=== PATIENT | male | born 1970 | race Caucasian/White ===

== ENCOUNTER → 2017-08-06 17:11 | Outpatient (REF) | payer BC, SELFPAY ==
[2017-08-06 19:23] LABS: Amphetamine/Metha Screen,Urine Negative ng/mL (<1000); Barbiturates Screen,Urine Negative ng/mL (<200); Benzodiazepines Screen,Urine Positive ng/mL (200); Cannabinoid Screen,Urine Negative ng/mL (<50); Cocaine Screen,Urine Negative ng/g (<300); Methadone Screen,Urine Negative ng/mL (<300); Opiate Screen,Urine Negative ng/mL (<300); Phencyclidine Screen,Urine Negative ng/mL (<25)
== END ==
LOC: LAB 17:11
PROVIDERS: Visit Provider Nurse Practitioner Family
DX: Z79.899 Other long term (current) drug therapy (principal)
CPT/HCPCS: 80305

== ENCOUNTER → 2017-11-28 15:34 | Outpatient (CLI) | payer BC, SELFPAY ==
[2017-11-28 17:34] LABS: Amphetamine/Metha Screen,Urine Negative ng/mL (<1000); Barbiturates Screen,Urine Negative ng/mL (<200); Benzodiazepines Screen,Urine Positive ng/mL (200); Cannabinoid Screen,Urine Negative ng/mL (<50); Cocaine Screen,Urine Negative ng/g (<300); Methadone Screen,Urine Negative ng/mL (<300); Opiate Screen,Urine Negative ng/mL (<300); Phencyclidine Screen,Urine Negative ng/mL (<25)
== END ==
PROVIDERS: Visit Provider Nurse Practitioner Family
DX: Z79.899 Other long term (current) drug therapy (principal)
CPT/HCPCS: 80305

== ENCOUNTER → 2018-02-20 15:46 | Outpatient (CLI) | payer BC, SELFPAY ==
[2018-02-20 18:26] LABS: Amphetamine/Metha Screen,Urine Negative ng/mL (<1000); Barbiturates Screen,Urine Negative ng/mL (<200); Benzodiazepines Screen,Urine Positive ng/mL (<200); Cannabinoid Screen,Urine Negative ng/mL (<50); Cocaine Screen,Urine Negative ng/mL (<300); Methadone Screen,Urine Negative ng/mL (<300); Opiate Screen,Urine Negative ng/mL (<300); Phencyclidine Screen,Urine Negative ng/mL (<25)
== END ==
PROVIDERS: Visit Provider Nurse Practitioner Family
DX: Z79.899 Other long term (current) drug therapy (principal)
CPT/HCPCS: 80305

== ENCOUNTER → 2018-03-20 16:35 | Outpatient (CLI) | payer BC, SELFPAY ==
[2018-03-20 19:09] LABS: Amphetamine/Metha Screen,Urine Negative ng/mL (<1000); Barbiturates Screen,Urine Negative ng/mL (<200); Benzodiazepines Screen,Urine Positive ng/mL (<200); Cannabinoid Screen,Urine Negative ng/mL (<50); Cocaine Screen,Urine Negative ng/mL (<300); Methadone Screen,Urine Negative ng/mL (<300); Opiate Screen,Urine Negative ng/mL (<300); Phencyclidine Screen,Urine Negative ng/mL (<25)
== END ==
PROVIDERS: Visit Provider Nurse Practitioner Family
DX: Z79.899 Other long term (current) drug therapy (principal)
CPT/HCPCS: 80305

== ENCOUNTER → 2018-12-18 16:51 | Outpatient (CLI) | payer BC, SELFPAY ==
[2018-12-18 19:06] LABS: Amphetamine/Metha Screen,Urine Negative ng/mL (<1000); Barbiturates Screen,Urine Negative ng/mL (<200); Benzodiazepines Screen,Urine Positive ng/mL (<200); Cannabinoid Screen,Urine Negative ng/mL (<50); Cocaine Screen,Urine Negative ng/mL (<300); Methadone Screen,Urine Negative ng/mL (<300); Opiate Screen,Urine Negative ng/mL (<300); Phencyclidine Screen,Urine Negative ng/mL (<25)
== END ==
PROVIDERS: Visit Provider Nurse Practitioner Family
DX: F41.9 Anxiety disorder, unspecified (principal)
CPT/HCPCS: 80305

== ENCOUNTER → 2019-03-26 17:29 | Outpatient (CLI) | payer BC, SELFPAY ==
[2019-03-26 17:48] LABS: Basophils # 0.1 K/mm3 (0-0.2); Basophils % 0.8 % (0.1-2.0); Eosinophils # 0.2 K/mm3 (0.0-0.4); Eosinophils % 2.1 % (0.1-12.0); Hematocrit 48.6 % (42.0-52.0); Hemoglobin 16.7 g/dL (14.1-18.0); Lymphocytes % 26.5 % (10-50); Mean Corpuscular HGB Conc 34.3 g/dL (31.8-35.4); Mean Corpuscular Hemoglobin 34.4 pg (27.0-31.2); Mean Corpuscular Volume 100.4 fl (80-94); Mean Platelet Volume 8.4 fl (7.4-10.4); Monocytes # 0.5 K/mm3 (0.1-1.0); Monocytes % 6.9 % (1.7-9.3); Neutrophils # 4.8 K/mm3 (1.8-7.8); Neutrophils % 63.8 % (37.0-80.0); Platelet Count 206 K/mm3 (142-424); Red Blood Count 4.84 M/mm3 (4.60-6.20); Red Cell Distribution Width 12.5 % (11.5-17.5); White Blood Count 7.5 K/mm3 (4.8-10.8)
[2019-03-26 19:01] LABS: Alanine Aminotransferase 38 U/L (12-78); Alkaline Phosphatase 56 U/L (46-116); Anion Gap 16.6 mEq/L (5-15); Aspartate Amino Transferase 31 U/L (15-37); Bilirubin,Total 0.5 mg/dL (0.2-1.0); Calcium 9.3 mg/dL (8.5-10.1); Carbon Dioxide 26 mmol/L (21.0-32.0); Chloride 101 mmol/L (98-107); Chol/HDL Ratio 6.7 (1-3.5); Cholesterol 220 mg/dL (140-200); Estimated Glomerular Filt Rate 72 ml/min (>60); GFR (African American) 87 ML/MIN (>60); HDL Cholesterol 33 mg/dL (27-67); LDL Cholesterol 131 mg/dL (0-130); Potassium 3.6 mmoL/L (3.5-5.1); Sodium 140 mmol/L (136-145); T4 (Thyroxine) 7.1 ug/dl (4.7-13.3); Thyroid Stimulating Hormone 2.25 uIU/ml (0.358-3.740); Total Protein,Serum 7.9 gm/dL (6.4-8.2); Triglycerides 281 mg/dL (30-200); VLDL Cholesterol 56 mg/dL (0-40)
[2019-03-26 19:10] LABS: Blood Urea Nitrogen 18 mg/dL (7-18); Globulin 3.9 gm/dl (1.3-3.2); Glucose 169 mg/dL (74-106)
== END ==
PROVIDERS: Visit Provider Nurse Practitioner Family
DX: F41.9 Anxiety disorder, unspecified (principal); I10 Essential (primary) hypertension
CPT/HCPCS: 80053; 80061; 84436; 84443; 85025

== ENCOUNTER → 2019-04-30 17:19 | Outpatient (CLI) | payer BC, SELFPAY ==
[2019-04-30 18:23] LABS: Amphetamine/Metha Screen,Urine Negative ng/mL (<1000); Barbiturates Screen,Urine Negative ng/mL (<200); Benzodiazepines Screen,Urine Positive ng/mL (<200); Cannabinoid Screen,Urine Positive ng/mL (<50); Cocaine Screen,Urine Negative ng/mL (<300); Methadone Screen,Urine Negative ng/mL (<300); Opiate Screen,Urine Negative ng/mL (<300); Phencyclidine Screen,Urine Negative ng/mL (<25)
== END ==
PROVIDERS: Visit Provider Nurse Practitioner Family
DX: F41.9 Anxiety disorder, unspecified (principal)
CPT/HCPCS: 80305

== ENCOUNTER 2020-08-08 09:16 | Emergency (ER) | payer BC, SELFPAY ==
[2020-08-08] VITALS (8 sets, daily range): BP systolic 133–168; BP diastolic 71–104; PULSE 81–132; RESP 16–18; TEMP 36.9; O2SAT 93–99; BMI 33.0
--- NOTE | 2020-08-08 11:23 | HMH.EDGENADL ---
ED Disposition Clinical Impression: Essential hypertension, Dizziness Disposition: Home, Self-Care Condition on Discharge: Good Instructions: DI for High Blood Pressure, DI for Dizziness-Nonvertigo Additional Instructions: Stop amlodipine 5 mg and to start amlodipine 10 mg daily. Follow-up with Audrey Ross NP for Dr. Enamorado tomorrow at 11 AM in the office. Prescriptions: Amlodipine Besylate [Amlodipine 10mg Tab] 10 mg PO DAILY #30 tab Transmission Status: Pending to [id number] Referrals: Audrey Ross APRN [Primary Care Provider] - Forms: Work/School Release - Critical Care Critical Care Time: No Attestation: On 08/08/20, the high probability of a clinically significant, sudden or life threatening deterioration of the following system(s) required my full and direct attention, intervention and personal management. The time I documented below is in addition to time spent performing reported procedures but includes the following listed in this critical care notation. Medical Decision Making - Riley Inquiry Pt receiving controlled substance: No Vital Signs: 08/08/20 09:24 08/08/20 09:27 08/08/20 10:29 Temperature 98.4 F Temperature Source Oral Pulse Rate [Right Radial] 132 H 131 H 116 H Respiratory Rate 16 Blood Pressure [Right Arm] 168/101 H 164/98 H 149/87 H Blood Pressure Mean [Right Arm] 123 120 107 Blood Pressure Source [Right Arm] Automatic Cuff Automatic Cuff Automatic Cuff Blood Pressure Position [Right Arm] Supine Supine Sitting 02 Sat by Pulse Oximetry 96 94 L 93 L Oxygen Delivery Method Room Air Room Air Room Air 08/08/20 11:30 08/08/20 12:00 Temperature Temperature Source Pulse Rate [Right Radial] 81 91 H Respiratory Rate 16 16 Blood Pressure [Right Arm] 133/91 H 164/101 H Blood Pressure Mean [Right Arm] 105 122 Blood Pressure Source [Right Arm] Blood Pressure Position [Right Arm] Supine Sitting 02 Sat by Pulse Oximetry 97 98 Oxygen Delivery Method - Lab Data Lab Results 08/08/20 11:38: WBC 8.5, RBC 5.15, Hgb 17.4, Hct 50.9, MCV 98.8 H, MCH 33.8 H, MCHC 34.2, RDW 12.5, Plt Count 181, MPV 7.2 L, Neut % (Auto) 73.5, Lymph % (Auto) 17.4, Owen % (Auto) 7.5, Eos % (Auto) 1.2, Baso % (Auto) 0.5, Neut # (Auto) 6.2, Lymph # (Auto) 1.5, Owen # (Auto) 0.6, Eos # (Auto) 0.1, Baso # (Auto) 0.0 08/08/20 11:38: Sodium 135 L, Potassium 4.2, Chloride 101, Carbon Dioxide 26, Anion Gap 12.2, BUN 11, Creatinine 0.70, Estimated Creat Clear 193, Estimated GFR 121, Est GFR ( Amer) 146, Glucose 109 H, Calcium 10.2, Total Bilirubin 1.1, AST 55, ALT 43, Alkaline Phosphatase 72, Troponin I < 0.01, Total Protein 9.0 H, Albumin 4.7, Globulin 4.3 H, Albumin/Globulin Ratio 1.1 08/08/20 11:38: TSH 2.19, Free T4 Index 3.5 L, Thyroxine (T4) 9.7, T3 Uptake 36 Result diagrams: 08/08/20 11:38 08/08/20 11:38 Orders (Tests/Meds): ORDERS Category Date Time Status Troponin I Q3H Lab 08/08/20 14:45 Ordered Troponin I Q3H Lab 08/08/20 17:45 Ordered - ECG Data Tracing #1 EKG interpreted by Braxton Stokes MD: Rhythm: sinus Rate: 99 [place]: normal Ectopy: none Conduction: Right bundle branch block ST Segment Changes: none T Wave Changes: none Q Waves: none No evidence of acute ischemia or injury Prior electrocardiagrams reviewed. No change from prior tracings. - Physician Consults Physician Consulted: Kelsea Time: 13:22 Reason -: Pt condition Comment/Response: increase amlodipine to 10mg/day. f/u in the office this week, any day, at 11am. General Adult HPI - General Chief complaint: Weakness Stated complaint: possible high bp Time Seen by Provider: 08/08/20 11:23 Mode of Arrival: Ambulatory Limitations: No Limitations Description of Symptoms (Recalled from ER Triage Doc. by RN): Elevated blood pressure - History of Present Illness HPI narrative: Complains of feeling lightheaded and dizzy for about 3 to 4 days. Checked his blood press
--- NOTE | 2020-08-08 11:43 | ECG_ITS ---
APPROVED REPORT Exam: Resting ECG HR:97 bpm ECG Measurements Heart Rate 97 AXES IN 128 P 61 QRSd 128 QRS 85 QT 406 T 39 QTc 515 Conclusion Poor data quality, interpretation may be adversely affected Normal sinus rhythm Right bundle branch block Abnormal ECG Electronically signed by : Elie Felix, 08/08/2020 17:18:54
[2020-08-08 11:53] LABS: Basophils % 0.5 % (0.1-2.0); Chloride 101 mmol/L (98-107); Eosinophils # 0.1 K/mm3 (0.0-0.4); Eosinophils % 1.2 % (0.1-12.0); Hematocrit 50.9 % (42.0-52.0); Hemoglobin 17.4 g/dL (14.1-18.0); Lymphocytes # 1.5 K/mm3 (0.7-4.5); Lymphocytes % 17.4 % (10-50); Mean Corpuscular HGB Conc 34.2 g/dL (31.8-35.4); Mean Corpuscular Hemoglobin 33.8 pg (27.0-31.2); Mean Corpuscular Volume 98.8 fl (80-94); Mean Platelet Volume 7.2 fl (7.4-10.4); Monocytes # 0.6 K/mm3 (0.1-1.0); Monocytes % 7.5 % (1.7-9.3); Neutrophils # 6.2 K/mm3 (1.8-7.8); Neutrophils % 73.5 % (37.0-80.0); Platelet Count 181 K/mm3 (142-424); Red Blood Count 5.15 M/mm3 (4.60-6.20); Red Cell Distribution Width 12.5 % (11.5-17.5); White Blood Count 8.5 K/mm3 (4.8-10.8)
[2020-08-08 11:54] LABS: Potassium 4.2 mmoL/L (3.5-5.1); Sodium 135 mmol/L (136-145)
[2020-08-08 11:56] LABS: Alanine Aminotransferase 43 U/L (12-78); Alkaline Phosphatase 72 U/L (38-126); Aspartate Amino Transferase 55 U/L (17-59); Bilirubin,Total 1.1 mg/dl (0.2-1.3); Blood Urea Nitrogen 11 mg/dl (9-20); Creatinine Clearance Estimated 193 mL/min (50-200); Estimated Glomerular Filt Rate 121 ml/min (>60); GFR (African American) 146 ML/MIN (>60)
[2020-08-08 11:57] LABS: Albumin Level 4.7 g/dl (3.5-5.0); Albumin/Globulin Ratio 1.1 (1.1-1.8); Anion Gap 12.2 mEq/L (5-15); Calcium 10.2 mg/dl (8.4-10.2); Carbon Dioxide 26 mmol/L (22.0-30.0); Globulin 4.3 g/dL (1.3-3.2); Glucose 109 mg/dl (74-100)
[2020-08-08 12:09] LABS: Troponin I < 0.01 ng/ml (0.00-0.034)
[2020-08-08 12:20] LABS: Free Thyroxine Index 3.5 ug/dL (5.93-13.13); T4 (Thyroxine) 9.7 ug/dl (5.53-11.0); Triiodothryronine (T3) Uptake 36 % (23.5-40.5)
[2020-08-08 12:34] LABS: Thyroid Stimulating Hormone 2.19 uIU/mL (0.465-4.68)
--- NOTE | 2020-08-08 12:52 | INFXCTL.NOTE ---
UNABLE TO DO CONTINUOUS CARDIAC MONITORING, DUE TO ROOM NOT HAVING CAPABILITY. UNABLE TO CHANGE ROOM FOR PATIENT DUE TO NO OTHER ER ROOMS AVAILABLE AT THIS TIME
== END 2020-08-08 13:45 | disposition home or self-care (01) ==
PROVIDERS: Emergency Provider Emergency Medicine; PCP Nurse Practitioner Family
DX: I16.0 Hypertensive urgency (principal); R42 Dizziness and giddiness; F17.210 Nicotine dependence, cigarettes, uncomplicated; F41.9 Anxiety disorder, unspecified; E78.5 Hyperlipidemia, unspecified; Z79.899 Other long term (current) drug therapy
CPT/HCPCS: 80053; 84436; 84443; 84479; 84484; 85025; 93005; 99283